=== PATIENT | male | born 1970 | race Caucasian/White ===

== ENCOUNTER 2018-10-12 12:45 | Emergency (ER) | payer OTHER ==
[~2018-10-12] VITALS: Ht 177.8 cm; Wt 88.5 kg
[2018-10-12 13:36] VITALS: BP 149/86
[2018-10-12] MEDS ORDERED: HYDROcodone-ACET 10/325MG TAB PO ONE (14:00)
== END 2018-10-12 15:07 | disposition home or self-care (01) ==
LOC: ER 12:47
DX: S46.001A Unspecified injury of muscle(s) and tendon(s) of the rotator cuff of right shoulder, initial encounter (principal); R91.1 Solitary pulmonary nodule; W18.39XA Other fall on same level, initial encounter; Y93.01 Activity, walking, marching and hiking; Y99.8 Other external cause status; Y92.89 Other specified places as the place of occurrence of the external cause
CPT/HCPCS: 73030; 73200